=== PATIENT | female | born 1955 | race African-American/Black ===

== ENCOUNTER 2016-11-12 22:09 | Emergency (ER) | payer OTHER, MEDICAID ==
[~2016-11-12] VITALS: Ht 165.1 cm; Wt 59.0 kg
[~2016-11-12 22:09] MED LIST: CITA20TA11 PO; FENT1PAT4 TD; HYDR10SY11 PO; LEVO25TA7 PO; LORA1TAB PO; SULF-165 PO
[2016-11-13] MEDS ORDERED: SODIUM CHLORIDE 0.9% 1,000 ML IV ONE (00:05)
[2016-11-13 00:32] LABS: BASOPHILS % 0.8 % (0.0-2.0); EOSINOPHILS % 2.3 % (0.0-5.0); HEMATOCRIT. 38.2 % (36.0-48.0); HEMOGLOBIN. 12.4 g/dL (12.0-16.0); LYMPHOCYTES % 42.4 % (20.0-50.0); MEAN CORPUSCULAR HEMOGLOBIN 30.8 pg (28.0-32.0); MEAN CORPUSCULAR HGB CONC 32.6 g/dL (31.0-37.0); MEAN CORPUSCULAR VOLUME 94.4 fL (81.0-99.0); MEAN PLATELET VOLUME 9.3 fl (7.4-10.4); MONOCYTES % 9.4 % (2.0-8.0); NEUTROPHILS % 45.1 % (40.0-76.0); PLATELET 176 x1000/uL (130-400); RED BLOOD CELL COUNT 4.04 mill/uL (4.2-5.4); RED CELL DISTRIBUTION WIDTH 14.2 % (11.6-14.6); WHITE BLOOD COUNT 4.8 x1000/uL (4.5-11.0)
[2016-11-13 00:40] LABS: AMMONIA 36 uMol/L (<32)
[2016-11-13 00:44] LABS: ALANINE AMINOTRANSFERASE 14 IU/L (13-61); ALBUMIN 3.5 g/dL (3.4-5.0); ANION GAP 12; CALCIUM 8.5 mg/dL (8.5-10.1); CARBON DIOXIDE 31 mEq/L (21-32); CHLORIDE 104 mEq/L (98-107); ETHANOL BLOOD < 10 mg/dL; INDEX HEMOLYSI 1 (1-3); INDEX ICTERIC 1 (1-4); INDEX LIPEMIC 1 (1-3); TROPONIN I < 0.02 ng/mL (0.00-0.04); UREA NITROGEN BLOOD 16 mg/dL (7-21); eGFR > 60 mL/min (>60)
[2016-11-13 01:13] LABS: *AMPHETAMINES SCREEN URINE NEGATIVE (NEGATIVE); *BARBITURATES SCREEN URINE NEGATIVE (NEGATIVE); *BENZODIAZEPINES SCREEN URINE NEGATIVE (NEGATIVE); *COCAINE SCREEN URINE NEGATIVE (NEGATIVE); CANNABINOID URINE SCREEN NEGATIVE (NEGATIVE); ECSTASY MDMA SCREEN URINE NEGATIVE (NEGATIVE); METHADONE URINE SCREEN NEGATIVE (NEGATIVE); OPIATES URINE SCREEN NEGATIVE (NEGATIVE); PHENCYCLIDINE URINE SCREEN NEGATIVE (NEGATIVE)
[2016-11-13 01:20] LABS: CLARITY URINE CLEAR (CLEAR); COLOR URINE YELLOW (YELLOW); GLUCOSE URINE NEGATIVE (NEGATIVE); KETONES URINE NEGATIVE (NEGATIVE); NITRITE URINE NEGATIVE (NEGATIVE); OCCULT BLOOD URINE NEGATIVE (NEGATIVE); PROTEIN URINE NEGATIVE (NEGATIVE); SPECIFIC GRAVITY URINE 1.027 (1.005-1.030)
[2016-11-13 01:21] LABS: LEUKOCYTE ESTERASE URINE NEGATIVE (NEGATIVE)
[2016-11-13] MEDS ORDERED: ENALAPRIL 2.5MG/2ML VIAL 2ML IV ONE (02:30)
[2016-11-13 05:01] VITALS: BP 185/91
== END 2016-11-13 06:33 | disposition short-term general hospital (02) ==
LOC: ER 22:11
DX: R53.1 Weakness (principal); M79.1 Myalgia; I10 Essential (primary) hypertension; I70.0 Atherosclerosis of aorta; Z88.0 Allergy status to penicillin; Z88.8 Allergy status to other drugs, medicaments and biological substances
CPT/HCPCS: 36415; 70450; 71010; 80053; 80305; 81003; 82140; 84484; 85025; 93005; 96361; 96374; 99285; G0482; J3490; J7030

== ENCOUNTER 2018-06-06 05:50 | Emergency (ER) | payer OTHER, MEDICAID ==
[~2018-06-06] VITALS: Ht 167.6 cm; Wt 59.0 kg
[~2018-06-06 05:50] MED LIST changes: -CITA20TA11 PO; +CITA20TA75 PO
[2018-06-06] MEDS ORDERED: ONDANSETRON HCL 4MG/2ML INJ IV STA (06:15)
[2018-06-06] MEDS ORDERED: FENTANYL CITRATE/PF 50MCG/ML 2ML VIAL IV ONE (06:15)
[2018-06-06] MEDS ORDERED: SODIUM CHLORIDE 0.9% 1,000 ML IV ONE (06:15)
[2018-06-06 06:48] LABS: BASOPHILS % 0.7 % (0.0-2.0); EOSINOPHILS % 1.6 % (0.0-5.0); HEMATOCRIT. 40.7 % (36.0-48.0); HEMOGLOBIN. 13.1 g/dL (12.0-16.0); MEAN CORPUSCULAR VOLUME 95.9 fL (81.0-99.0); MEAN PLATELET VOLUME 9.4 fl (7.4-10.4); MONOCYTES % 9.1 % (2.0-8.0); NEUTROPHILS % 36.6 % (40.0-76.0); PLATELET 191 x1000/uL (130-400); RED BLOOD CELL COUNT 4.24 mill/uL (4.2-5.4); RED CELL DISTRIBUTION WIDTH 14.6 % (11.6-14.6)
[2018-06-06 06:55] LABS: INR 1.1; PROTHROMBIN TIME 10.6 sec (9.1-11.1)
[2018-06-06 06:59] LABS: CHLORIDE 106 mEq/L (98-107)
[2018-06-06] MEDS ORDERED: IOHEXOL-300 100 ML BOTTLE ONE (09:13)
[2018-06-06 10:59] LABS: CLARITY URINE CLEAR (CLEAR); COLOR URINE YELLOW (YELLOW); KETONES URINE NEGATIVE (NEGATIVE); LEUKOCYTE ESTERASE URINE NEGATIVE (NEGATIVE); NITRITE URINE NEGATIVE (NEGATIVE); OCCULT BLOOD URINE NEGATIVE (NEGATIVE); PROTEIN URINE NEGATIVE (NEGATIVE); SPECIFIC GRAVITY URINE 1.045 (1.005-1.030); UROBILINOGEN URINE 0.2 E.U./dL (0.2-1.0)
[2018-06-06 12:01] VITALS: BP 154/70
== END 2018-06-06 12:01 | disposition home or self-care (01) ==
LOC: ER 05:50
DX: R10.11 Right upper quadrant pain (principal); R11.0 Nausea; I10 Essential (primary) hypertension; M79.7 Fibromyalgia; E03.9 Hypothyroidism, unspecified; Z88.0 Allergy status to penicillin; Z88.8 Allergy status to other drugs, medicaments and biological substances; Z88.6 Allergy status to analgesic agent; Z79.899 Other long term (current) drug therapy
CPT/HCPCS: 36415; 71045; 74177; 76705; 80053; 81003; 83690; 83880; 85025; 85610; 93005; 96374; 96375; 99285; J2405; J3010; J7030; Q9967

== ENCOUNTER 2018-09-18 02:21 | Emergency (ER) | payer OTHER, MEDICAID ==
[~2018-09-18] VITALS: Ht 170.2 cm; Wt 73.0 kg
[2018-09-18] MEDS ORDERED: ASPIRIN 81MG TABLET PO ONE (03:00)
[2018-09-18 04:05] LABS: BASOPHILS % 0.7 % (0.0-2.0); EOSINOPHILS % 1.1 % (0.0-5.0); HEMATOCRIT. 39.1 % (36.0-48.0); HEMOGLOBIN. 12.6 g/dL (12.0-16.0); LYMPHOCYTES % 45.6 % (20.0-50.0); MEAN CORPUSCULAR VOLUME 96.1 fL (81.0-99.0); MEAN PLATELET VOLUME 9.7 fl (7.4-10.4); MONOCYTES % 13.6 % (2.0-8.0); PLATELET 214 x1000/uL (130-400); RED BLOOD CELL COUNT 4.07 mill/uL (4.2-5.4); RED CELL DISTRIBUTION WIDTH 14.1 % (11.6-14.6)
[2018-09-18 04:06] LABS: CHLORIDE 110 mEq/L (98-107)
[2018-09-18 07:32] VITALS: BP 136/78
[2018-09-18] MEDS ORDERED: HYDROCODONE/ACETAMINOPHEN 5/325MG TABLET PO ONE (07:45)
== END 2018-09-18 08:10 | disposition short-term general hospital (02) ==
LOC: ER 02:21
DX: R07.89 Other chest pain (principal); I11.9 Hypertensive heart disease without heart failure; I25.10 Atherosclerotic heart disease of native coronary artery without angina pectoris; I51.9 Heart disease, unspecified; Z88.0 Allergy status to penicillin; Z88.8 Allergy status to other drugs, medicaments and biological substances; Z88.6 Allergy status to analgesic agent; Z79.899 Other long term (current) drug therapy
CPT/HCPCS: 36415; 71045; 83880; 84484; 93005; 99285

== ENCOUNTER 2020-02-21 05:40 | Emergency (ER) | payer OTHER, MEDICAID ==
[~2020-02-21] VITALS: Ht 170.2 cm; Wt 82.0 kg
[2020-02-21 08:38] LABS: BASOPHILS % 0.4 % (0.0-2.0); HEMATOCRIT. 40.5 % (36.0-48.0); HEMOGLOBIN. 13.7 g/dL (12.0-16.0); LYMPHOCYTES % 15.1 % (20.0-50.0); MEAN CORPUSCULAR HEMOGLOBIN 33.4 pg (28.0-32.0); MEAN PLATELET VOLUME 9.4 fl (7.4-10.4); MONOCYTES % 6.8 % (2.0-8.0); NEUTROPHILS % 77.7 % (40.0-76.0); PLATELET 232 x1000/uL (130-400)
[2020-02-21 08:41] LABS: CHLORIDE 105 mEq/L (98-107)
[2020-02-21] MEDS ORDERED: HYDRALAZINE 20MG/ML VIAL IV ONE (09:00)
[2020-02-21 09:59] VITALS: BP 174/78
== END 2020-02-21 10:47 | disposition home or self-care (01) ==
LOC: ER 05:40
DX: E78.00 Pure hypercholesterolemia, unspecified (principal); I10 Essential (primary) hypertension; Z88.0 Allergy status to penicillin; Z88.6 Allergy status to analgesic agent; Z79.899 Other long term (current) drug therapy; Z98.890 Other specified postprocedural states
CPT/HCPCS: 36415; 80053; 85025; 93005; 96374; 99284; J0360

== ENCOUNTER 2021-06-27 09:13 | Emergency (ER) | payer OTHER, MEDICAID ==
[~2021-06-27] VITALS: Ht 167.6 cm; Wt 68.0 kg
[2021-06-27 12:54] LABS: BASOPHILS % 0.7 % (0.0-2.0); EOSINOPHILS % 0.2 % (0.0-5.0); HEMATOCRIT. 39.3 % (36.0-48.0); HEMOGLOBIN. 12.9 g/dL (12.0-16.0); LYMPHOCYTES % 34.7 % (20.0-50.0); MEAN CORPUSCULAR HEMOGLOBIN 32.6 pg (28.0-32.0); MEAN CORPUSCULAR VOLUME 99.3 fL (81.0-99.0); MEAN PLATELET VOLUME 7.9 fl (7.4-10.4); NEUTROPHILS % 55.4 % (40.0-76.0); PLATELET 250 x1000/uL (130-400); RED BLOOD CELL COUNT 3.96 mill/uL (4.2-5.4); RED CELL DISTRIBUTION WIDTH 15.1 % (11.6-14.6)
[2021-06-27] MEDS ORDERED: MORPHINE SULFATE 4 MG/ML CPJ (NOT FOR IM USE) IV ONE (13:00)
[2021-06-27 13:01] LABS: CHLORIDE 101 mEq/L (98-107)
[2021-06-27 14:37] LABS: CLARITY URINE CLEAR (CLEAR); COLOR URINE YELLOW (YELLOW); KETONES URINE TRACE (NEGATIVE); LEUKOCYTE ESTERASE URINE NEGATIVE (NEGATIVE); NITRITE URINE NEGATIVE (NEGATIVE); OCCULT BLOOD URINE NEGATIVE (NEGATIVE); PH URINE 6.5 (4.5-8.0); PROTEIN URINE NEGATIVE (NEGATIVE); SPECIFIC GRAVITY URINE 1.026 (1.005-1.030); UROBILINOGEN URINE 0.2 E.U./dL (0.2-1.0)
[2021-06-27] MEDS ORDERED: IOHEXOL-300 100 ML BOTTLE ONE (16:24)
[2021-06-27 16:58] VITALS: BP 140/88
== END 2021-06-27 18:22 | disposition home or self-care (01) ==
LOC: ER 09:13
DX: R10.13 Epigastric pain (principal); R10.814 Left lower quadrant abdominal tenderness; R10.813 Right lower quadrant abdominal tenderness; E86.0 Dehydration; I10 Essential (primary) hypertension; Z86.73 Personal history of transient ischemic attack (TIA), and cerebral infarction without residual deficits
CPT/HCPCS: 36415; 74177; 80053; 81003; 83690; 85025; 93005; 96374; 99285; J2270; Q9967

== ENCOUNTER 2021-11-29 02:02 | Emergency (ER) | payer OTHER, MEDICAID ==
[~2021-11-29] VITALS: Ht 154.9 cm; Wt 64.0 kg
[2021-11-29] MEDS ORDERED: KETOROLAC 30MG/ML VIAL IV STA (02:56)
[2021-11-29] MEDS ORDERED: ONDANSETRON HCL 4MG/2ML INJ IV STA (02:56)
[2021-11-29] MEDS ORDERED: SODIUM CHLORIDE 0.9% 1,000 ML IV ONE (03:00)
[2021-11-29 03:43] LABS: BASOPHILS % 0.3 % (0.0-2.0); EOSINOPHILS % 0.5 % (0.0-5.0); HEMATOCRIT. 36.9 % (36.0-48.0); HEMOGLOBIN. 12.2 g/dL (12.0-16.0); LYMPHOCYTES % 19.9 % (20.0-50.0); MEAN CORPUSCULAR VOLUME 103.2 fL (81.0-99.0); MEAN PLATELET VOLUME 8.9 fl (7.4-10.4); MONOCYTES % 6.6 % (2.0-8.0); NEUTROPHILS % 72.7 % (40.0-76.0); PLATELET 217 x1000/uL (130-400); RED BLOOD CELL COUNT 3.58 mill/uL (4.2-5.4); RED CELL DISTRIBUTION WIDTH 14.6 % (11.6-14.6)
[2021-11-29 03:45] LABS: CHLORIDE 101 mEq/L (98-107)
[2021-11-29 03:48] LABS: INR 1.1; PARTIAL THROMBOPLASTIN TIME 28.1 sec (23.4-31.0); PROTHROMBIN TIME 11.3 sec (9.6-11.0)
[2021-11-29] MEDS ORDERED: METRONIDAZOLE 500 MG PREMIX 100 ML IV ONE (04:45)
[2021-11-29] MEDS ORDERED: LEVOFLOXACIN 750MG PREMIX 150 ML IV ONE (04:45)
[2021-11-29 06:27] LABS: CLARITY URINE CLEAR (CLEAR); COLOR URINE YELLOW (YELLOW); KETONES URINE NEGATIVE (NEGATIVE); LEUKOCYTE ESTERASE URINE 2+ (NEGATIVE); NITRITE URINE POSITIVE (NEGATIVE); OCCULT BLOOD URINE 1+ (NEGATIVE); PH URINE 6.5 (4.5-8.0); PROTEIN URINE NEGATIVE (NEGATIVE); SPECIFIC GRAVITY URINE 1.012 (1.005-1.030)
[2021-11-29 09:46] VITALS: BP 144/77
== END 2021-11-29 09:50 | disposition short-term general hospital (02) ==
LOC: ER 02:17
DX: K62.5 Hemorrhage of anus and rectum (principal); K52.9 Noninfective gastroenteritis and colitis, unspecified; I10 Essential (primary) hypertension; Z86.73 Personal history of transient ischemic attack (TIA), and cerebral infarction without residual deficits; Z79.899 Other long term (current) drug therapy; Z88.0 Allergy status to penicillin; Z20.822 Contact with and (suspected) exposure to COVID-19
CPT/HCPCS: 36415; 71045; 74176; 80053; 81003; 82270; 83690; 84484; 85025; 85610; 85730; 87077; 87086; 87186; 87426; 96361; 96365; 96366; 96368; 96375; 99285; J1885; J1956; J2405; J3490; J7030

== ENCOUNTER 2021-12-25 18:58 | Emergency (ER) | payer OTHER, MEDICAID ==
[~2021-12-25] VITALS: Ht 162.6 cm; Wt 55.0 kg
[2021-12-25 19:24] LABS: BASOPHILS % 0.9 % (0.0-2.0); EOSINOPHILS % 1.7 % (0.0-5.0); HEMATOCRIT. 35.5 % (36.0-48.0); HEMOGLOBIN. 11.7 g/dL (12.0-16.0); MEAN CORPUSCULAR HEMOGLOBIN 33.5 pg (28.0-32.0); MEAN CORPUSCULAR VOLUME 101.4 fL (81.0-99.0); MEAN PLATELET VOLUME 7.7 fl (7.4-10.4); MONOCYTES % 11.3 % (2.0-8.0); NEUTROPHILS % 40.1 % (40.0-76.0); PLATELET 313 x1000/uL (130-400); RED CELL DISTRIBUTION WIDTH 14.4 % (11.6-14.6)
[2021-12-25 19:35] LABS: CHLORIDE 103 mEq/L (98-107)
[2021-12-25] MEDS ORDERED: PANTOPRAZOLE SODIUM 40 MG/VIAL IV STA (22:48)
[2021-12-25] MEDS ORDERED: MAGNESIUM/ALUMINUM HYDROXIDE/SIMETHICONE 30ML UDC PO STA (22:48)
[2021-12-25] MEDS ORDERED: ONDANSETRON HCL 4MG/2ML INJ IV STA (22:48)
[2021-12-26] MEDS: PANTOPRAZOLE SODIUM 40 MG/VIAL IV SCH ×2 (00:12→02:15)
[2021-12-26] MEDS ORDERED: MAGNESIUM/ALUMINUM HYDROXIDE/SIMETHICONE 30ML UDC PO SCH (00:15)
[2021-12-26] MEDS ORDERED: ONDANSETRON HCL 4MG/2ML INJ IV SCH (00:15)
[2021-12-26] MEDS ORDERED: VISCOUS LIDOCAINE 2% 15 ML UDC MM SCH (01:00)
[2021-12-26] MEDS ORDERED: HYDRALAZINE HCL 50MG TABLET PO ONE (01:00)
[2021-12-26] MEDS ORDERED: MORPHINE SULFATE 4 MG/ML CPJ (NOT FOR IM USE) IV SCH (01:00)
[2021-12-26] MEDS: LISINOPRIL 20MG TABLET PO SCH ×2 (01:23→02:16)
[2021-12-26 02:11] LABS: BASOPHILS % 1.1 % (0.0-2.0); EOSINOPHILS % 2.2 % (0.0-5.0); HEMATOCRIT. 36.5 % (36.0-48.0); HEMOGLOBIN. 12.3 g/dL (12.0-16.0); LYMPHOCYTES % 45.4 % (20.0-50.0); MEAN CORPUSCULAR HEMOGLOBIN 34.2 pg (28.0-32.0); MEAN CORPUSCULAR VOLUME 101.9 fL (81.0-99.0); MEAN PLATELET VOLUME 8.3 fl (7.4-10.4); MONOCYTES % 11.8 % (2.0-8.0); NEUTROPHILS % 39.5 % (40.0-76.0); PLATELET 277 x1000/uL (130-400); RED BLOOD CELL COUNT 3.59 mill/uL (4.2-5.4); RED CELL DISTRIBUTION WIDTH 14.4 % (11.6-14.6)
[2021-12-26 02:21] LABS: CHLORIDE 103 mEq/L (98-107)
[2021-12-26 02:30] LABS: ETHANOL BLOOD < 10 mg/dL
[2021-12-26 07:53] VITALS: BP 136/76
== END 2021-12-26 08:55 | disposition short-term general hospital (02) ==
LOC: ER 18:58 → CANBEDREQ 12-26 21:38
DX: K29.70 Gastritis, unspecified, without bleeding (principal); I10 Essential (primary) hypertension; E03.9 Hypothyroidism, unspecified; Z86.73 Personal history of transient ischemic attack (TIA), and cerebral infarction without residual deficits; D64.9 Anemia, unspecified; Z88.0 Allergy status to penicillin; Z88.5 Allergy status to narcotic agent; Z91.040 Latex allergy status; Z88.8 Allergy status to other drugs, medicaments and biological substances; Z20.822 Contact with and (suspected) exposure to COVID-19
CPT/HCPCS: 36415; 71045; 74176; 80053; 80320; 83605; 83690; 84484; 85025; 87426; 93005; 96374; 96375; 99285; C9113; C9803; J2270; J2405; G0480

== ENCOUNTER 2022-02-05 14:08 | Emergency (ER) | payer OTHER, MEDICAID ==
[~2022-02-05] VITALS: Ht 162.6 cm; Wt 59.0 kg
[2022-02-05] MEDS ORDERED: SODIUM CHLORIDE 0.9% 1,000 ML IV ONE (16:00)
[2022-02-05] MEDS ORDERED: KETOROLAC 15MG/ML VIAL IV ONE (16:00)
[2022-02-05 16:29] LABS: HEMATOCRIT. 28.3 % (36.0-48.0); HEMOGLOBIN. 9.1 g/dL (12.0-16.0); MEAN CORPUSCULAR HEMOGLOBIN 31.3 pg (28.0-32.0); MEAN CORPUSCULAR VOLUME 97.8 fL (81.0-99.0); MEAN PLATELET VOLUME 8.7 fl (7.4-10.4); PLATELET 348 x1000/uL (130-400); RED CELL DISTRIBUTION WIDTH 15.4 % (11.6-14.6)
[2022-02-05 16:34] LABS: PROTHROMBIN TIME 11.1 sec (9.6-11.0)
[2022-02-05 16:35] LABS: CHLORIDE 97 mEq/L (98-107)
[2022-02-05] MEDS ORDERED: AZTREONAM 1 G in DEXTROSE 5% WATER 50 ML IV STA (18:23)
[2022-02-05] MEDS ORDERED: VANCOMYCIN 1GM PMX (XELLIA) 200 ML IV SCH (18:30)
[2022-02-05] MEDS ORDERED: VANCOMYCIN 1G PREMIX 200 ML IV NR (18:45)
[2022-02-05] MEDS ORDERED: KETOROLAC 15MG/ML VIAL IV NR (19:30)
[2022-02-05 19:34] LABS: PLATELET ESTIMATE NORMAL
[2022-02-05 21:09] VITALS: BP 146/72
[2022-02-06] MEDS ORDERED: VANCOMYCIN 500MG PREMIX 100 ML IV SCH (08:30)
== END 2022-02-05 21:33 | disposition short-term general hospital (02) ==
LOC: ER 14:18
DX: J18.9 Pneumonia, unspecified organism (principal); R62.7 Adult failure to thrive; D64.9 Anemia, unspecified; R18.8 Other ascites; I10 Essential (primary) hypertension; Z68.22 Body mass index [BMI] 22.0-22.9, adult; Z88.0 Allergy status to penicillin; Z91.048 Other nonmedicinal substance allergy status; Z91.040 Latex allergy status; Z98.890 Other specified postprocedural states
CPT/HCPCS: 36415; 71045; 74176; 80053; 83690; 85025; 85610; 96365; 96367; 96375; 99285; J1885; J3370; J3490; J7030; J7060

== ENCOUNTER 2022-05-15 11:05 | Emergency (ER) | payer OTHER, MEDICAID ==
[~2022-05-15] VITALS: Ht 165.1 cm; Wt 68.0 kg
[2022-05-15] MEDS ORDERED: ALBUTEROL (0.083%) 2.5MG/3ML NEB HHN STA (11:36)
[2022-05-15] MEDS ORDERED: METHYLPREDNISOLONE SOD SUCC 125 MG/2 ML VIAL IV STA (11:36)
[2022-05-15] MEDS ORDERED: IPRATROPIUM BROMIDE (0.02%) 0.5MG/2.5ML NEB HHN STA (11:36)
[2022-05-15 12:19] LABS: BASOPHILS % 1.3 % (0.0-2.0); EOSINOPHILS % 2.2 % (0.0-5.0); HEMATOCRIT. 33.8 % (36.0-48.0); HEMOGLOBIN. 10.6 g/dL (12.0-16.0); LYMPHOCYTES % 43.5 % (20.0-50.0); MEAN CORPUSCULAR HEMOGLOBIN 28.9 pg (28.0-32.0); MEAN PLATELET VOLUME 9.7 fl (7.4-10.4); MONOCYTES % 8.6 % (2.0-8.0); NEUTROPHILS % 44.4 % (40.0-76.0); PLATELET 268 x1000/uL (130-400); RED BLOOD CELL COUNT 3.68 mill/uL (4.2-5.4); RED CELL DISTRIBUTION WIDTH 14.8 % (11.6-14.6)
[2022-05-15 12:23] LABS: CHLORIDE 105 mEq/L (98-107)
[2022-05-15 13:23] LABS: BG BASE EXCESS 1.8 mmol/L (-2.0-2.0); BG CARBOXYHEMOGLOBIN 0.2 % (0.5-1.5); BG DEOXYHEMOGLOBIN 1.9 % (0.0-5.0); BG FRACTION INSPIRED OXYGEN 28; BG HCO3 ACT 27.4 mmol/L (22.0-26.0); BG METHEMOGLOBIN 0.5 % (0.0-1.5); BG OXYGEN SATURATION 98.1 % (92.0-98.5); BG OXYHEMOGLOBIN 97.4 % (94.0-97.0); BG PCO2 47.3 mmHg (35.0-45.0); BG PH 7.381 (7.350-7.450); BG PO2 107.2 mmHg (75.0-100.0); BG SAMPLE SITE RIGHT BRACHIAL; BG VENT MODE NASAL CANNULA
[2022-05-15 14:00] LABS: CLARITY URINE TURBID (CLEAR); COLOR URINE YELLOW (YELLOW); KETONES URINE TRACE (NEGATIVE); LEUKOCYTE ESTERASE URINE 3+ (NEGATIVE); NITRITE URINE POSITIVE (NEGATIVE); OCCULT BLOOD URINE 2+ (NEGATIVE); PROTEIN URINE 2+ (NEGATIVE); SPECIFIC GRAVITY URINE 1.015 (1.005-1.030)
[2022-05-15] MEDS ORDERED: KCL 10MEQ/50ML PREMIX 50 ML IV ONE (14:00)
[2022-05-15] MEDS ORDERED: POTASSIUM CHLORIDE 20MEQ TABLET SR PO ONE (14:00)
[2022-05-15] MEDS ORDERED: POTASSIUM BICARB/CIT ACID 25 MEQ TABLET.EFF PO ONE (14:30)
[2022-05-15] MEDS ORDERED: MORPHINE SULFATE 4 MG/ML CPJ (NOT FOR IM USE) IV ONE (14:45)
[2022-05-15 16:18] VITALS: BP 123/80
== END 2022-05-15 16:30 | disposition short-term general hospital (02) ==
LOC: ER 11:05 → CANBEDREQ 14:31 → ER 16:30
DX: R06.03 Acute respiratory distress (principal); E87.6 Hypokalemia; I49.1 Atrial premature depolarization; I44.4 Left anterior fascicular block; Z20.822 Contact with and (suspected) exposure to COVID-19; J45.909 Unspecified asthma, uncomplicated; I10 Essential (primary) hypertension; Z86.73 Personal history of transient ischemic attack (TIA), and cerebral infarction without residual deficits; Z88.0 Allergy status to penicillin; Z88.5 Allergy status to narcotic agent; Z88.8 Allergy status to other drugs, medicaments and biological substances; Z91.040 Latex allergy status
CPT/HCPCS: 36415; 36600; 71045; 80053; 81003; 82375; 82805; 83880; 84484; 85025; 87040; 87086; 87426; 87804; 93005; 94640; 96365; 96375; 99285; C9803; J2270; J2930; J3480

== ENCOUNTER 2022-06-27 00:20 | Inpatient (IN) | payer OTHER, MEDICAID ==
[~2022-06-27] VITALS: Ht 167.6 cm; Wt 56.3 kg
[2022-06-27] MEDS ORDERED: ONDANSETRON HCL 4MG/2ML INJ IV STA (00:42)
[2022-06-27] MEDS ORDERED: MORPHINE SULFATE 4 MG/ML CPJ (NOT FOR IM USE) IV STA (00:42)
[2022-06-27] MEDS ORDERED: SODIUM CHLORIDE 0.9% 1,000 ML IV ONE (00:45)
[2022-06-27 01:09] LABS: HEMATOCRIT. 33.3 % (36.0-48.0); HEMOGLOBIN. 10.5 g/dL (12.0-16.0); MEAN CORPUSCULAR HEMOGLOBIN 27.6 pg (28.0-32.0); MEAN CORPUSCULAR VOLUME 87.1 fL (81.0-99.0); MEAN PLATELET VOLUME 9.7 fl (7.4-10.4); PLATELET 178 x1000/uL (130-400); RED BLOOD CELL COUNT 3.82 mill/uL (4.2-5.4); RED CELL DISTRIBUTION WIDTH 16.5 % (11.6-14.6)
[2022-06-27 01:19] LABS: CHLORIDE 103 mEq/L (98-107)
[2022-06-27 01:20] LABS: INR 1.2; PROTHROMBIN TIME 13.2 sec (9.6-11.0)
[2022-06-27 01:28] LABS: ETHANOL BLOOD < 10 mg/dL
[2022-06-27] MEDS ORDERED: POTASSIUM CHLORIDE INJ 40 MEQ in DEXT 5% WATER 250 ML IV ONE ×2 (01:45→09:00)
[2022-06-27] MEDS ORDERED: MORPHINE SULFATE 4 MG/ML CPJ (NOT FOR IM USE) IV NR (04:30)
[2022-06-27] MEDS ORDERED: ONDANSETRON HCL 4MG/2ML INJ IV NR (04:30)
[2022-06-27] MEDS: KCL 20MEQ/100ML X 2 FOR TOTAL KCL 40MEQ/200ML IV SCH ×4 (04:30→13:45)
[2022-06-27 06:04] LABS: PLATELET ESTIMATE NORMAL
[2022-06-27] MEDS ORDERED: IOHEXOL-300 100 ML BOTTLE ONE (06:32)
[2022-06-27] MEDS ORDERED: IPRATROPIUM/ALBUTEROL 0.5-3(2.5)MG/3ML NEB HHN PRN (09:00)
[2022-06-27] MEDS ORDERED: KETOROLAC 30MG/ML VIAL IV PRN (09:00)
[2022-06-27] MEDS ORDERED: DIPHENHYDRAMINE 50MG/ML VIAL IV PRN (09:00)
[2022-06-27] MEDS ORDERED: ACETAMINOPHEN 325MG TABLET PO PRN ×2 (09:00)
[2022-06-27] MEDS ORDERED: ONDANSETRON HCL 4MG/2ML INJ IV PRN (09:00)
[2022-06-27] MEDS ORDERED: DEXTROSE 50% WATER 50ML SYRINGE IV PRN (09:00)
[2022-06-27 10:00] VITALS: BP 153/102
[2022-06-27] MEDS ORDERED: LEVOFLOXACIN 500MG PREMIX 100 ML IV SCH (11:00)
[2022-06-27] MEDS: ENOXAPARIN 40MG/0.4ML SYR SUBCUT SCH (11:14)
[2022-06-27] MEDS: SODIUM CHLORIDE 0.9% 1,000 ML IV SCH ×2 (11:15→19:45)
[2022-06-27] MEDS: BLOOD SUGAR DIAGNOSTIC STRIP TEST SCH ×3 (11:50→21:45)
[2022-06-27] MEDS: INSULIN LISPRO 100 UNITS/ML SUBCUT SCH ×3 (12:20→21:45)
[2022-06-27 13:21] LABS: TOTAL IRON BINDING CAPACITY 134 ug/dL (250-450)
[2022-06-27] MEDS: PANTOPRAZOLE SODIUM 40 MG/VIAL IV SCH (13:44)
[2022-06-27 14:40] LABS: VITAMIN B12 SERUM >2000 pg/mL pg/mL (211-911)
[2022-06-27 15:19] LABS: FERRITIN 279 ng/mL (10-291)
[2022-06-27] MEDS: KETOROLAC 15MG/ML VIAL IV PRN (15:47)
[2022-06-27 20:05] VITALS: BP 121/74
[2022-06-27 23:50] VITALS: BP 122/76
[2022-06-28 02:05] VITALS: BP 122/77
[2022-06-28 04:05] VITALS: BP 133/79
[2022-06-28] MEDS: SODIUM CHLORIDE 0.9% 1,000 ML IV SCH (05:00)
[2022-06-28 05:50] VITALS: BP 133/78
[2022-06-28 08:05] VITALS: BP 113/65
[2022-06-28 08:21] LABS: BASOPHILS % 1.2 % (0.0-2.0); EOSINOPHILS % 0.8 % (0.0-5.0); HEMATOCRIT. 40.1 % (36.0-48.0); HEMOGLOBIN. 12.3 g/dL (12.0-16.0); LYMPHOCYTES % 60.3 % (20.0-50.0); MEAN CORPUSCULAR VOLUME 91.2 fL (81.0-99.0); MONOCYTES % 8.4 % (2.0-8.0); NEUTROPHILS % 29.3 % (40.0-76.0); PLATELET 156 x1000/uL (130-400); RED BLOOD CELL COUNT 4.39 mill/uL (4.2-5.4); RED CELL DISTRIBUTION WIDTH 16.8 % (11.6-14.6)
[2022-06-28] MEDS ORDERED: LIDOCAINE HCL 1% 30ML VIAL (10MG/ML) ONE (08:45)
[2022-06-28] MEDS: PANTOPRAZOLE SODIUM 40 MG/VIAL IV SCH (09:48)
[2022-06-28] MEDS: DEXT 5%/0.45% NACL KCL 20MEQ/L 1,000 ML IV SCH ×2 (09:48→23:30)
[2022-06-28] MEDS: KETOROLAC 15MG/ML VIAL IV PRN (09:48)
[2022-06-28] MEDS: ENOXAPARIN 40MG/0.4ML SYR SUBCUT SCH (09:48)
[2022-06-28] MEDS: FOLIC ACID 1MG TABLET PO SCH (11:13)
[2022-06-28] MEDS: LEVOTHYROXINE SODIUM 100 MCG/ VIAL IV SCH (11:13)
[2022-06-28 12:05] VITALS: BP 136/78
[2022-06-28 14:30] LABS: CHLORIDE 108 mEq/L (98-107)
[2022-06-28 14:37] LABS: PHOSPHORUS 1.4 mg/dL (2.5-4.9)
[2022-06-28 16:05] VITALS: BP 121/77
[2022-06-29] VITALS (7 sets, daily range): BP systolic 104–142; BP diastolic 63–95
[2022-06-29] MEDS: KETOROLAC 15MG/ML VIAL IV PRN ×2 (06:21→12:20)
[2022-06-29] MEDS ORDERED: HYDROMORPHONE HCL/PF 2MG/ML CPJ IV NR (07:45)
[2022-06-29] MEDS: FOLIC ACID 1MG TABLET PO SCH ×2 (09:00→10:17)
[2022-06-29] MEDS: PANTOPRAZOLE SODIUM 40 MG/VIAL IV SCH (10:16)
[2022-06-29] MEDS: ENOXAPARIN 40MG/0.4ML SYR SUBCUT SCH (10:17)
[2022-06-29] MEDS: LEVOTHYROXINE SODIUM 100 MCG/ VIAL IV SCH (10:19)
[2022-06-29 10:36] LABS: BASOPHILS % 0.9 % (0.0-2.0); EOSINOPHILS % 0.7 % (0.0-5.0); HEMATOCRIT. 30.7 % (36.0-48.0); HEMOGLOBIN. 9.7 g/dL (12.0-16.0); LYMPHOCYTES % 60.1 % (20.0-50.0); MEAN CORPUSCULAR HEMOGLOBIN 27.4 pg (28.0-32.0); MEAN CORPUSCULAR VOLUME 86.8 fL (81.0-99.0); MEAN PLATELET VOLUME 9.8 fl (7.4-10.4); NEUTROPHILS % 30.3 % (40.0-76.0); PLATELET 140 x1000/uL (130-400); RED BLOOD CELL COUNT 3.54 mill/uL (4.2-5.4); RED CELL DISTRIBUTION WIDTH 16.4 % (11.6-14.6)
[2022-06-29 10:44] LABS: CHLORIDE 109 mEq/L (98-107)
[2022-06-29] MEDS ORDERED: MAGNESIUM 4 G PREMIX 100 ML IV NR (11:00)
[2022-06-29] MEDS ORDERED: LEVOFLOXACIN 250MG PREMIX 50 ML IV SCH (11:00)
[2022-06-29] MEDS ORDERED: POTASSIUM PHOS,M-BASIC-D-BASIC 30 MMOL in DEXT 5% WATER 500 ML IV NR (11:00)
[2022-06-29] MEDS: DEXT 5%/0.45% NACL KCL 20MEQ/L 1,000 ML IV SCH (11:40)
== END 2022-06-29 21:50 | disposition short-term general hospital (02) | DRG 391 ==
LOC: ER 00:27 → MICUSO 04:23 → 3WST 09:54
PROVIDERS: ADMIT Internal Medicine; ATTEND Internal Medicine
PROC: 05HY33Z Insertion of Infusion Device into Upper Vein, Percutaneous Approach (ICD-10-PCS; principal; 2022-06-28)
DX: K21.9 Gastro-esophageal reflux disease without esophagitis (principal); E43 Unspecified severe protein-calorie malnutrition; J98.11 Atelectasis; I69.351 Hemiplegia and hemiparesis following cerebral infarction affecting right dominant side; I95.9 Hypotension, unspecified; K52.9 Noninfective gastroenteritis and colitis, unspecified; E87.6 Hypokalemia; E53.8 Deficiency of other specified B group vitamins; D64.9 Anemia, unspecified; I11.0 Hypertensive heart disease with heart failure; I50.9 Heart failure, unspecified; D25.9 Leiomyoma of uterus, unspecified; E78.5 Hyperlipidemia, unspecified; E83.39 Other disorders of phosphorus metabolism; E83.42 Hypomagnesemia; F41.1 Generalized anxiety disorder; G89.29 Other chronic pain; E03.9 Hypothyroidism, unspecified; J44.9 Chronic obstructive pulmonary disease, unspecified; J45.909 Unspecified asthma, uncomplicated; J38.00 Paralysis of vocal cords and larynx, unspecified; E87.8 Other disorders of electrolyte and fluid balance, not elsewhere classified; Z20.822 Contact with and (suspected) exposure to COVID-19; Z68.20 Body mass index [BMI] 20.0-20.9, adult; Z79.82 Long term (current) use of aspirin; Z91.040 Latex allergy status; Z88.0 Allergy status to penicillin; Z91.048 Other nonmedicinal substance allergy status; Z90.49 Acquired absence of other specified parts of digestive tract; Z82.49 Family history of ischemic heart disease and other diseases of the circulatory system
CPT/HCPCS: 36415; 36573; 71045; 74018; 74177; 80048; 80053; 80320; 82607; 82728; 82746; 82962; 82977; 83036; 83540; 83550; 83605; 83735; 84100; 84443; 84484; 85025; 85044; 86301; 86850; 86900; 87426; 93005; 99285; C1725; C1769; C1893; C9113; J1170; J1650; J1885; J1956; J2270; J2405; J3475; J3480; J3490; J7030; J7060; Q9967; G0480